=== PATIENT | female | born 1970 | race Caucasian/White ===

== ENCOUNTER 2017-01-04 19:41 | Emergency (ER) | payer OTHER ==
[~2017-01-04] VITALS: Ht 167.6 cm; Wt 88.3 kg
[~2017-01-04 19:41] MED LIST: ALPR0.25 PO; CITA10TA4 PO; CITA20TA9 PO; ESCI20TA PO; HYDR-3138 PO; METH2.5T PO; MULT-658 PO; ONDA4TAB7 PO; OXYC-223 PO; RITU10VI IV; TURM500C7 PO
[2017-01-04 19:44] VITALS: BP 122/78
== END 2017-01-04 21:18 | disposition home or self-care (01) ==
LOC: ED 21:12
DX: S63.521A Sprain of radiocarpal joint of right wrist, initial encounter (principal); S70.11XA Contusion of right thigh, initial encounter; M25.531 Pain in right wrist; W01.0XXA Fall on same level from slipping, tripping and stumbling without subsequent striking against object, initial encounter; Y93.89 Activity, other specified; Y92.89 Other specified places as the place of occurrence of the external cause; Y99.8 Other external cause status
CPT/HCPCS: 99284

== ENCOUNTER 2017-09-24 10:39 | Day surgery (SDC) | payer OTHER ==
[~2017-09-24] VITALS: Ht 167.6 cm; Wt 88.6 kg
[~2017-09-24 10:39] MED LIST changes: +EPINEPHRINE TOPICAL SOLN 1 MG/ML, 30ML ONE; -HYDR-3138 PO; +HYDR-3237 PO; +HYDR-3245 PO; -OXYC-223 PO; +OXYC-306 PO; +ROPIvacaine/PF 0.5%, 30 ML ONE
[2017-09-24] MEDS ORDERED: MIDAZOLAM 1 MG/ML, 2ML ONE (11:16)
[2017-09-24] MEDS ORDERED: LIDOCAINE-MPF 1%, 2ML ONE (11:17)
[2017-09-24] MEDS ORDERED: FENTANYL PF 250 MCG/5ML ONE (11:17)
[2017-09-24 11:36] VITALS: BP 95/64
[2017-09-24 11:36] LABS: HCG UR SG 1.017 (1.003-1.030)
[2017-09-24] MEDS ORDERED: PROPOFOL 50 ML ONE (11:54)
[2017-09-24] MEDS ORDERED: LACTATED RINGERS 1,000 ML IV SCH (12:00)
[2017-09-24] MEDS ORDERED: LIDOCAINE 1%, 2ML SQ PRN (12:00)
[2017-09-24] MEDS ORDERED: DIPHENHYDRAMINE 50 MG/ML, 1ML ONE ×2 (12:04→12:08)
[2017-09-24] MEDS ORDERED: CEFAZOLIN 1,000 MG ONE (12:08)
[2017-09-24] MEDS ORDERED: ROCURONIUM 10 MG/ML,10ML ONE (12:08)
[2017-09-24] MEDS ORDERED: DEXAMETHASONE 4 MG/ML, 5ML ONE (12:08)
[2017-09-24] MEDS ORDERED: SUCCINYLCHOLINE 20 MG/ML, 10ML ONE (12:08)
[2017-09-24] MEDS ORDERED: FENTANYL PF 100 MCG/2ML ONE ×2 (13:13→14:26)
[2017-09-24] MEDS ORDERED: MEPERIDINE/PF 25MG/0.5ML IVPush PRN (13:30)
[2017-09-24] MEDS ORDERED: PROMETHAZINE 12.5 MG SUPP PR PRN (13:30)
[2017-09-24] MEDS ORDERED: DIPHENHYDRAMINE 50 MG/ML, 1ML IVPush PRN (13:30)
[2017-09-24] MEDS ORDERED: FENTANYL PF 100 MCG/2ML IV PRN (13:30)
[2017-09-24] MEDS ORDERED: EPHEDRINE 50 MG/ML, 1ML IVPush PRN (13:30)
[2017-09-24] MEDS ORDERED: ONDANSETRON 2MG/ML, 2ML IVPush PRN (13:30)
[2017-09-24] MEDS ORDERED: morphine SULFATE 10 MG/ML, 1ML IV PRN (13:30)
[2017-09-24] MEDS ORDERED: LORazepam 2 MG/ML, 1ML IVPush PRN (13:30)
[2017-09-24] MEDS ORDERED: OXYcodone 5 MG/5 ML ORAL.SOL UDC PO PRN (13:30)
[2017-09-24] MEDS ORDERED: PROMETHAZINE 25 MG/ML, 1ML IV PRN (13:30)
[2017-09-24] MEDS ORDERED: ACETAMINOPHEN 325 MG TABLET PO PRN (13:30)
[2017-09-24] MEDS ORDERED: HYDROcodone/APAP 7.5-325MG/15ML UDC PO PRN (13:30)
[2017-09-24] MEDS ORDERED: HYDROcodone/APAP 7.5-325MG/15ML UDC ONE (14:16)
[2017-09-24] MEDS ORDERED: LORazepam 2 MG/ML, 1ML ONE (14:17)
== END 2017-09-24 16:20 ==
LOC: OUT 10:39
PROVIDERS: ATTEND Orthopaedic Surgery
DX: S73.192A Other sprain of left hip, initial encounter (principal); M25.852 Other specified joint disorders, left hip; M65.852 Other synovitis and tenosynovitis, left thigh; Z91.040 Latex allergy status; Z88.8 Allergy status to other drugs, medicaments and biological substances; X58.XXXA Exposure to other specified factors, initial encounter; Y93.89 Activity, other specified; Y92.89 Other specified places as the place of occurrence of the external cause; Y99.8 Other external cause status
CPT/HCPCS: 29914; 29915; 73501; 76000; 81025; J0330; J0690; J1100; J1200; J2060; J2250; J2704; J2795; J3010; J3490; J7120

== ENCOUNTER 2018-01-14 18:24 | Emergency (ER) | payer OTHER ==
[~2018-01-14] VITALS: Ht 160 cm; Wt 91.0 kg
[~2018-01-14 18:24] MED LIST changes: -EPINEPHRINE TOPICAL SOLN 1 MG/ML, 30ML ONE; -ROPIvacaine/PF 0.5%, 30 ML ONE
[2018-01-14 18:40] VITALS: BP 106/74
[2018-01-14] MEDS ORDERED: CEFAZOLIN PMX 1GM/50ML 50 ML IVPB ONE (19:00)
[2018-01-14] MEDS ORDERED: LIDOCAINE 2%, 20ML SQ ONE (19:00)
[2018-01-14] MEDS ORDERED: SODIUM CHLORIDE FLUSH 10ML SYR IVF ONE (19:00)
[2018-01-14] MEDS ORDERED: DIPH,PERTUSS(ACELL),TET VAC/PF 0.5 ML IM-VACC ONE ×2 (19:00→19:08)
[2018-01-14] MEDS ORDERED: LIDOCAINE-MPF 2% ,5ML ONE (19:08)
[2018-01-14] MEDS ORDERED: CEFAZOLIN PMX 1GM/50ML 50 ML ONE (19:08)
[2018-01-14 19:16] LABS: BASOPHILS # (AUTO) 0.03 x10^3/uL (0-0.1); BASOPHILS % (AUTO) 0 % (0-1); EOSINOPHILS # (AUTO) 0.16 x10^3/uL (0-0.4); EOSINOPHILS % (AUTO) 2 % (1-7); LYMPHOCYTES # (AUTO) 1.64 x10^3/uL (1-3.4); LYMPHOCYTES % (AUTO) 19 % (22-44); MD NO; MEAN CORPUSCULAR HGB CONC 34.1 g/dL (32.4-35.8); MEAN CORPUSCULAR VOLUME 96.9 fL (80-100); MEAN PLATELET VOLUME 8.4 fL (7.4-10.4); MONOCYTES # (AUTO) 0.37 x10^3/uL (0.2-0.8); MONOCYTES % (AUTO) 4 % (2-9); NEUTROPHILS # (AUTO) 6.31 x10^3/uL (1.8-6.8); NEUTROPHILS % (AUTO) 74 % (42-75); PLATELET COUNT 270 x10^3/uL (130-400); RED BLOOD COUNT 4.39 x10^6/uL (3.82-5.3); RED CELL DISTRIBUTION WIDTH 14.1 % (9.6-15.2)
[2018-01-14 19:22] LABS: ALBUMIN 4.1 g/dL (3.4-5.0); ANION GAP 8 mmol/L (5-15); CALCIUM 9.1 mg/dL (8.5-10.1); CHLORIDE 111 mmol/L (98-107); CREATININE 0.96 mg/dL (0.55-1.02)
[2018-01-14] MEDS ORDERED: MORPHINE SULFATE 4 MG/ML, 1ML ONE (21:03)
[2018-01-14] MEDS ORDERED: ONDANSETRON ODT 4 MG ONE (21:03)
[2018-01-14] MEDS ORDERED: MORPHINE SULFATE 4 MG/ML, 1ML IV ONE (21:30)
[2018-01-14] MEDS ORDERED: OMNIPAQUE 350 MG/ML, 100ML BOTTLE ONE (21:40)
[2018-01-14] MEDS ORDERED: BACITRACIN ZINC OINT 500U/GM, 0.9 GM ONE (21:42)
== END 2018-01-14 21:58 | disposition home or self-care (01) ==
LOC: ED 21:25
DX: S81.831A Puncture wound without foreign body, right lower leg, initial encounter (principal); W26.8XXA Contact with other sharp object(s), not elsewhere classified, initial encounter; Y93.89 Activity, other specified; Y99.8 Other external cause status; Y92.009 Unspecified place in unspecified non-institutional (private) residence as the place of occurrence of the external cause
CPT/HCPCS: 36415; 73706; 80048; 82040; 85025; 90471; 90715; 96365; 96375; 99285; J0690; Q9967

== ENCOUNTER 2018-08-28 07:48 | Emergency (ER) | payer OTHER ==
[~2018-08-28] VITALS: Ht 165.1 cm; Wt 87.0 kg
[2018-08-28] MEDS ORDERED: OXYcodone/APAP 10/325MG TABLET ONE (08:15)
[2018-08-28] MEDS ORDERED: DEXAMETHASONE 4 MG/ML, 5ML ONE (08:15)
[2018-08-28] MEDS ORDERED: KETOROLAC 30 MG/1 ML ONE (08:15)
[2018-08-28] MEDS ORDERED: KETOROLAC 30 MG/1 ML IM ONE (08:30)
[2018-08-28] MEDS ORDERED: DEXAMETHASONE 4 MG/ML, 1ML IM ONE (08:30)
[2018-08-28] MEDS ORDERED: OXYcodone/APAP 10/325MG TABLET PO ONE (08:30)
--- NOTE | 2018-08-28 08:56 | NUR ---
LATE ENTRY: PT INITIALLY REFUSED PERC[facility] AT 0826 AND THEN CHANGED HER MIND AND DECIDED SHE WANTED IT. [facility]ET ADMINISTERED AT 0834, UNABLE TO CHART IN EMR. PT CURRENTLY DEPARTING ED IN [facility] [place] IN CARE OF .
[2018-08-28 08:57] VITALS: BP 110/56
== END 2018-08-28 10:17 | disposition home or self-care (01) ==
LOC: ED 08:56
DX: M25.532 Pain in left wrist (principal); M06.832 Other specified rheumatoid arthritis, left wrist
CPT/HCPCS: 29260; 96372; 99283; J1100; J1885